=== PATIENT | male | born 1985 ===

== ENCOUNTER 2018-06-02 15:57 | Emergency (ER) | payer OTHER, SELFPAY ==
[2018-06-02 16:05] VITALS: BP 138/89; PULSE 74; RESP 18; TEMP 98.3; O2SAT 100
--- NOTE | 2018-06-02 16:16 | ED PDOC ---
HPI: Eye Injury/Pain Time Seen by Provider: 06/02/18 16:22 Chief Complaint (Nursing): Eye Problem Chief Complaint (Provider): left eye pain and swelling History Per: Patient Onset/Duration Of Symptoms: Days (x3) Current Symptoms Are (Timing): Still Present Wears Contact Lens?: No Associated Symptoms: Pain, Swelling Additional Complaint(s): Hang Sidhu is a 33 year old male, with no significant past medical history , who presents to the emergency department complaining of left eyebrow redness, pain and swelling x 3 days. He did not take any medication for symptoms. Patient denies any fever, chills, eye discharge, injury or trauma to the eye. No further medical complaints. PMD: None provided. Past Medical History Reviewed: Historical Data, Nursing Documentation, Vital Signs Vital Signs: Last Vital Signs Temp 98.3 F 06/02/18 16:03 Pulse 74 06/02/18 16:03 Resp 18 06/02/18 16:03 BP 138/89 06/02/18 16:03 Pulse Ox 100 06/02/18 16:03 - Medical History PMH: No Chronic Diseases - Surgical History Surgical History: No Surg Hx - Family History Family History: States: No Known Family Hx - Living Arrangements Living Arrangements: With Family - Social History Current smoker - smoking cessation education provided: No Alcohol: None Drugs: Denies - Home Medications Home Medications: Ambulatory Orders Medication Instructions Recorded Hydrocodone/Acetaminophen [Vicodin 1 tab PO Q6 #10 tab 05/19/14 5 mg-500 mg] Naproxen 375 mg PO Q8 PRN #21 tab 05/19/14 diaZEpam [Valium] 5 mg PO Q6 PRN #14 tab 05/19/14 Clindamycin [Cleocin] 300 mg PO QID #28 cap 06/02/18 Ibuprofen [Motrin Tab] 800 mg PO Q8 PRN #20 tab 06/02/18 - Allergies Allergies/Adverse Reactions: Allergies Allergy/AdvReac Type Severity Reaction Status Date / Time No Known Allergies Allergy Verified 06/02/18 16:03 Review of Systems ROS Statement: Except As Marked, All Systems Reviewed And Found Negative Constitutional: Negative for: Fever, Chills Eyes: Positive for: Pain (left eye), Eyelid Inflammation (left) Physical Exam - Reviewed Nursing Documentation Reviewed: Yes Vital Signs Reviewed: Yes - Physical Exam Appears: Positive for: Well, Non-toxic, No Acute Distress Head Exam: Positive for: ATRAUMATIC, NORMAL INSPECTION, NORMOCEPHALIC Skin: Positive for: Normal Color Eye Exam: Positive for: Normal appearance, EOMI, Other (Indurated 2 cm abscess to left eyebrow region with mild swelling of left upper eyelid. Abscess with no fluctuance or central pointing) Extremity: Positive for: Normal ROM (upper and lower extremities). Negative for : Deformity, Swelling Neurologic/Psych: Positive for: Alert, Oriented - ECG O2 Sat by Pulse Oximetry: 100 (RA) Pulse Ox Interpretation: Normal Medical Decision Making Medical Decision Making: Time: 16:10 Initial Impression: Left eyebrow abscess Initial plan: - Pain meds declined in ED. --Abscess is too indurated with no fluctuance of central pointing. There is no indication for I&D at this time. Patient was advised to apply warm compresses with epsom salts as often as possible. Will give prescription for Motrin and Clindamycin. Advised wound re-check in 2-3 days. Scribe Attestation: Documented by Herbert Forde, acting as a scribe for Krystal Frederick PA-C Provider Scribe Attestation: All medical record entries made by the Scribe were at my direction and personally dictated by me. I have reviewed the chart and agree that the record accurately reflects my personal performance of the history, physical exam, medical decision making, and the department course for this patient. I have also personally directed, reviewed, and agree with the discharge instructions and disposition. Disposition - Clinical Impression Clinical Impression: Abscess - Patient ED Disposition Is Patient to be Admitted: No Counseled Patient/Family Regarding: Diagnosis, Need For Followup, Rx Given - Disposition Referrals: [facility] [Outside] Disposition Time: 16:28 Condition: STABLE Additional Instructions: Apply warm compresses with EPSOM SALTS to affected area as often as possible. Take rx meds as directed. Wound re-check in 2-3 days. Prescriptions: Clindamycin [Cleocin] 300 mg PO QID #28 cap Ibuprofen [Motrin Tab] 800 mg PO Q8 PRN #20 tab PRN Reason: Pain, Moderate (4-7) Instructions: Skin Abscess Forms: [facility] (Turkish) Print Language: CHINESE
== END 2018-06-02 18:07 | disposition home or self-care (01) ==
LOC: H.ER 15:57
DX: H00.032 Abscess of right lower eyelid (principal)